=== PATIENT | female | born 2005 | race Caucasian/White ===

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

== ENCOUNTER → 2024-12-25 | Outpatient (CLI) | payer OTHER ==
--- NOTE | 2024-12-25 09:24 | US ---
EXAMINATION TYPE: US kidneys/renal and bladder DATE OF EXAM: 12/25/2024 COMPARISON: NONE CLINICAL INDICATION: Female, 19 years old with history of R10.9 UNSPECIFIED ABDOMINAL PAIN; Left side pain. Hematuria. TECHNIQUE: Grayscale imaging of the bilateral kidneys and urinary bladder: FINDINGS: EXAM MEASUREMENTS: Right Kidney: 12.8 x 4.8 x 5.1 cm Left Kidney: 11.5 x 5.3 x 4.5 cm Right Kidney: No hydronephrosis or masses seen Left Kidney: No hydronephrosis or masses seen Bladder: Under distended without gross abnormality. Bilateral Jets seen IMPRESSION: No hydronephrosis or other specific sonographic abnormality seen. [facility], Workstation: [id number], 12/25/2024 9:21 AM
== END | disposition home or self-care (01) ==
LOC: RADUSWWP 08:22
PROVIDERS: ATTEND Family Medicine
DX: R10.9 Unspecified abdominal pain (principal); R31.9 Hematuria, unspecified
CPT/HCPCS: 76770